=== PATIENT | female | born 1945 | race Caucasian/White ===

== ENCOUNTER → 2019-03-14 | Outpatient (CLI) | payer OTHER ==
--- NOTE | 2019-03-14 16:11 | KCIC ---
EXAM: Cervical spine, 5 views. HISTORY: Pain. COMPARISON: None. FINDINGS: 5 views of the cervical spine are obtained. There is and minimal anterolisthesis of C4 on C5, C5 on C6, C6 on C7 and C7 on T1. The disc spaces are preserved. No fracture is seen. There is mild anterior predominant endplate remodeling at multiple levels. There is multilevel facet arthropathy. IMPRESSION: Multilevel degenerative change and minimal anterolisthesis at multiple levels. No acute osseous finding. Electronically signed by: Alicia Mccabe MD (03/14/2019 4:08 PM) [place] [id number]
== END | disposition home or self-care (01) ==
LOC: KCIC 15:21
PROVIDERS: ATTEND Family Medicine
DX: M47.812 Spondylosis without myelopathy or radiculopathy, cervical region (principal); R63.4 Abnormal weight loss; Z85.038 Personal history of other malignant neoplasm of large intestine
CPT/HCPCS: 72050

== ENCOUNTER → 2020-09-28 | Outpatient (CLI) | payer MEDICARE ==
--- NOTE | 2020-09-28 14:53 | KCIC ---
EXAM: Brain MRI without contrast. HISTORY: Memory loss. Dizziness. TECHNIQUE: Multiplanar, multisequence magnetic resonance imaging of the brain was performed without c ontrast. COMPARISON: None. FINDINGS: There is no restricted diffusion to suggest acute or subacute infarction. There are foci of susceptibility effect within the right cerebellum likely due to chronic microhemorrhage. There is no mass effect or midline shift. There is no hydrocephalus. There are scattered focal and confluent areas of T2/FLAIR hyperintensity within the cerebral white ma tter and lyndon, a nonspecific finding which is most commonly due to chronic small vessel disease in pa tients of this age. There is age-appropriate cerebral volume loss. There is evidence of lens surgery. The paranasal sinus es mastoid air cells are unremarkable. There are normal flow voids within the cerebral vessels. There is no suspicious calvarial lesion. IMPRESSION: 1. No acute intracranial finding. 2. Scattered areas of signal change within the cerebral white matter and lyndon, likely due to chronic small vessel disease in a patient of this age. Electronically signed by: Alicia Mccabe MD (09/28/2020 2:50 PM) [id number]
== END ==
LOC: KCIC MRI 10:51
PROVIDERS: ATTEND Psychiatry & Neurology Neurology with Special Qualifications in Child Neurology
DX: G44.209 Tension-type headache, unspecified, not intractable (principal); R41.3 Other amnesia; R42 Dizziness and giddiness
CPT/HCPCS: 70551